=== PATIENT | female | born 1970 | race Hispanic/Latino ===

== ENCOUNTER 2019-09-26 21:43 | Emergency (ER) | payer OTHER ==
[~2019-09-26] VITALS: Ht 162.6 cm; Wt 68.0 kg
--- NOTE | 2019-09-26 22:55 | Emergency Department Note ---
History of Present Illnes History of Present Illness Chief Complaint: Abdominal Complaints History of Present Illness This is a 49 year old female who presents with c/o no bowel movement for 1 week with the exception of passing a couple of small hard pieces of stool today . Historian: Patient Arrival Mode: Car Onset (how long ago): week(s) (1) Location: abdomen Quality: dull discomfort to lower abdomen with occasional cramping Radiation: non-radiation Severity: mild Onset quality: gradual Duration (how long): week(s) (1) Timing of current episode: constant Progression: unchanged Chronicity: new Relieving factors: none Exacerbating factors: none Associated symptoms: denies other symptoms Past Medical/Family History Physician Review I have reviewed the patient's past medical and family history. Any updates have been documented here. Past Medical History Recent Fever: No Clinical Suspicion of Infectio: No New/Unexplained Change in Ment: No Past Medical History: Hypothyroidism, GERD Past Surgical History: Appendectomy Social History Smoking Cessation: Current every day smoker Alcohol Use: Social Any Illegal Drug Use: No TB Exposure/Symptoms: No Physically hurt or threatened: No Other Last Tetanus: UNK Any Pre-Existing Lines (PICC,: No Is patient up to date on immun: No Last Flu: DENIES Last Pneumovax: DENIES Review of Systems Review of Systems Constitutional: no symptoms EENTM: no symptoms Cardiovascular: no symptoms Respiratory: no symptoms Gastrointestinal: as per HPI, abdominal pain, constipation Genitourinary: no symptoms Musculoskeletal: no symptoms Integumentary: no symptoms Neurological: no symptoms Psychological: no symptoms Endocrine: no symptoms Hematological/Lymphatic: no symptoms Review of other systems All other systems reviewed and negative. Physical Exam Related Data Allergies: Coded Allergies: No Known Allergies (Unverified , 09/26/19) Triage Vital Signs Vital Signs Date Time Temp Pulse Resp B/P (MAP) Pulse Ox O2 Delivery O2 Flow Rate FiO2 09/26/19 22:40 99.2 80 20 115/78 99 Vital signs reviewed: Yes Physical Exam CONSTITUTIONAL Constitutional: well-developed, well-nourished HENT HENT: normocephalic, atraumatic, oropharynx clear/moist, nose normal HENT - Ear: left ext ear normal, right ext ear normal EYES Eyes: PERRL, conjunctivae normal NECK Neck: ROM normal PULMONARY Pulmonary: effort normal, breath sounds normal CARDIOVASCULAR Cardiovascular: regular rhythm, heart sounds normal, capillary refill normal, normal rate GASTROINTESTINAL Abdominal: soft, nontender, bowel sounds normal GENITOURINARY Genitourinary: exam deferred SKIN Skin: warm, dry MUSCULOSKELETAL Musculoskeletal: ROM normal NEUROLOGICAL Neurological: alert, oriented x 3, no gross motor or sensory deficits PSYCHOLOGICAL Psychiatric/behavioral: mood/affect normal, judgement normal Results Imaging Imaging results reviewed: Yes Imaging Comments pt with moderate stool volume left colon, interpreted by me Critical Care Time Subsequent provider I assumed direction of critical care for this patient from another provider of my specialty. Assessment & Plan Assessment & Plan Problems: (1) Constipation Assessment & Plan pt with constipation for 1 week, kub ordered to eval for extent of constipation, ileus, Depart Disposition: HOME, SELF-CARE Last Vital Signs Date Time Temp Pulse Resp B/P (MAP) Pulse Ox O2 Delivery O2 Flow Rate FiO2 09/26/19 22:40 99.2 80 20 115/78 99 MATI BALLESTEROS MD September 26, 2019 22:54
[2019-09-27 00:12] VITALS: BP 121/78
--- NOTE | 2019-09-27 01:04 | Diagnostic Imaging Report ---
EXAM: Abdomen Radiograph 1 View(s) INDICATION: Abdominal pain COMPARISON: None FINDINGS: The bowel gas pattern is nonspecific. Moderate formed stool within the left colon and rectum. No free intraperitoneal air. No abnormal soft tissue calcification. Bilateral tubal ligation clips. IMPRESSION: No acute abdominal radiographic abnormality. Signed by: Tyrone Elena MD on 09/27/2019 1:01 AM
[2019-09-27] MEDS ORDERED: COLACE100 MG PO (17:02)
[2019-09-27] MEDS ORDERED: BISACODYL5 MG PO (17:02)
== END 2019-09-27 00:39 | disposition home or self-care (01) ==
LOC: ER 21:43
DX: R10.9 Unspecified abdominal pain (principal); K59.00 Constipation, unspecified; E03.9 Hypothyroidism, unspecified; K21.9 Gastro-esophageal reflux disease without esophagitis; F17.210 Nicotine dependence, cigarettes, uncomplicated
CPT/HCPCS: 74019; 99283

== ENCOUNTER 2019-09-27 11:34 | Emergency (ER) | payer OTHER ==
[~2019-09-27] VITALS: Ht 162.6 cm; Wt 68.0 kg
--- OUTSIDE RECORDS SUMMARY | 2019-09-27 11:37 | XMS REPORT ---
Author Author [facility] t Organization [facility] Address 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 Social History Social Habit Start Date Stop Date Quantity Comments Source Sex Assigned At 1970 00:00:00 1970 00:00:00 Female [facility] Medications This patient has no known medications. Vital Signs Vital Name Observation Time Observation Value Comments Source Weight 2019-09-26 22:40:00 150 [lb_av] [facility] BMI (Body Mass Index) 2019-09-26 22:40:00 25.7 kg/m2 [facility] Procedures This patient has no known procedures. Plan of Care Planned Activity Planned Date Details Comments Source Goal Patient referral [code = [id number] ] [facility] Instructions Constipation - Adult [facility] Results Test Description Test Time Test Comments Results Result Comments Source ABDOMEN 2 VIEW 2019-09-27 01:00:00 [facility] [address] [place], [place] [address] Patient Name: COLLETTE DONG MR #: [id number] : 1970 Age/Sex: 49/F Req #: [id number] [facility] Physician: Ordered by: MATI BALLESTEROS MD Report #: [id number] Location: ER Room/Bed: Procedure: [id number] DX/ABDOMEN 2 VIEW Exam Date: 09/26/19 Exam Time: 2315 REPORT STATUS: Signed EXAM: Abdomen Radiograph 1 View(s) INDICATION: Abdominal pain COMPARISON: None FINDINGS: The bowel gas pattern is nonspecific. Moderate formed stool within the left colon and rectum. No free intraperitoneal air. No abnormal soft tissue calcification. Bilateral tubal ligation clips. IMPRESSION: No acute abdominal radiographic abnormality. Signed by: Fabiola Goff MD on 09/27/2019 1:01 AM Dictated By: FABIOLA GOFF MD 0 Transcribed By: VITO on 09/27/19100 COPY TO: MATI BALLESTEROS MD
[2019-09-27 12:11] LABS: BASOPHILS % 0.3 % (0.0-1.0); EOSINOPHILS # (AUTO) 0.1 (0.0-0.4); HEMATOCRIT 38.6 % (34.2-44.1); LYMPHOCYTES # (AUTO) 1.7 (1.0-3.2); LYMPHOCYTES % 16.6 % (18.0-39.1); MEAN CORPUSCULAR HGB CONC 33.7 g/dL (31-35); MEAN CORPUSCULAR VOLUME 91.9 fL (81-99); MONOCYTES # (AUTO) 0.6 (0.2-0.8); MONOCYTES % 6.1 % (4.4-11.3); NEUTROPHILS # (AUTO) 7.7 (2.1-6.9); NEUTROPHILS % 75.5 % (38.7-80.0); PLATELET COUNT 264 x10e3/uL (140-360); RED CELL DISTRIBUTION WIDTH 12.9 % (11.7-14.4)
[2019-09-27 12:34] LABS: ALANINE AMINOTRANSFERASE 20 IU/L (0-55); ALBUMIN 4.2 g/dL (3.5-5.0); ALBUMIN/GLOBULIN RATIO 1.1 (0.8-2.0); ALKALINE PHOSPHATASE 142 IU/L (40-150); ANION GAP 13.6 mmol/L (8-16); BLOOD UREA NITROGEN 15 mg/dL (7-26); BUN/CREATININE RATIO 20 (6-25); CALCIUM 9.8 mg/dL (8.4-10.2); CARBON DIOXIDE 26 mmol/L (22-29); CHLORIDE 102 mmol/L (98-107); CREATINE KINASE 121 IU/L (29-168); CREATININE, SERUM 0.74 mg/dL (0.57-1.11); EST GLOMERULAR FILTRATION RATE > 60 ML/MIN (60-); GLUCOSE 91 mg/dL (74-118); POTASSIUM 3.6 mmol/L (3.5-5.1); SODIUM 138 mmol/L (136-145)
[2019-09-27] MEDS ORDERED: DIATRIZOATE MEGL/DIATRIZOA SOD 30 ML BTL PO ONE (12:37)
--- NOTE | 2019-09-27 12:44 | NUR ---
PATIENT AGAIN REMINDED OF NEED FOR URINE SAMPLE; PATIENT STATES THAT SHE IS UNABLE TO GO. DR COON NOTIFIED AT THIS TIME
[2019-09-27] MEDS ORDERED: LACTULOSE SYRUP 20 GM/30 ML UDC ONE (13:43)
[2019-09-27] MEDS ORDERED: LACTULOSE SYRUP 20 GM/30 ML UDC PO ONE (13:45)
[2019-09-27] MEDS ORDERED: SODIUM CHLORIDE 0.9% 50ML 50 ML ONE (13:53)
[2019-09-27] MEDS ORDERED: IOPAMIDOL 370 MG/ML 200 ML INFUS..BTL INJ ONE (13:53)
--- NOTE | 2019-09-27 15:33 | Diagnostic Imaging Report ---
EXAM: CT Abdomen and Pelvis WITH intravenous contrast INDICATION: Abdominal pain COMPARISON: KUB 09/26/2019 TECHNIQUE: Abdomen and pelvis were scanned utilizing a multidetector helical scanner from the lung base to the pubic symphysis after administration of IV contrast. Coronal and sagittal reformations were obtained. Routine protocol was performed. Scan was performed during portal venous phase. IV CONTRAST: 100mL of Isovue 370 ORAL CONTRAST: Water RADIATION DOSE: Total DLP: 306 mGy*cm Dose modulation, iterative reconstruction, and/or weight based adjustment of the mA/kV was utilized to reduce the radiation dose to as low as reasonably achievable. FINDINGS: LOWER THORAX: Normal. HEPATOBILIARY: No focal hepatic lesions. No biliary ductal dilatation. The gallbladder appears unremarkable. SPLEEN: No splenomegaly. PANCREAS: No focal masses or ductal dilatation. ADRENALS: No adrenal nodules. KIDNEYS/URETERS: No hydronephrosis, stones, or solid mass lesions. PELVIC ORGANS/BLADDER: Unremarkable. PERITONEUM / RETROPERITONEUM: No free air or fluid. LYMPH NODES: No lymphadenopathy. VESSELS: Unremarkable. GI TRACT: No distention or wall thickening. Increased stool burden, most notably in the rectum. BONES AND SOFT TISSUES: Unremarkable. IMPRESSION: Increased stool burden, most notably in the rectum, can be seen in the setting of constipation. Otherwise, no acute findings in the abdomen or pelvis. Signed by: Kaitlyn Whaley MD on 09/27/2019 3:30 PM
[2019-09-27] MEDS ORDERED: LIDOCAINE HCL 2% JELLY 5 ML TUBE ONE (15:40)
--- NOTE | 2019-09-27 16:28 | NUR ---
Soap suds enema produced large bowel movement, pt reports some cramping.
--- NOTE | 2019-09-27 16:55 | Emergency Department Note ---
History of Present Illnes History of Present Illness Chief Complaint: Abdominal Complaints History of Present Illness This is a 49 year old female . Chief Complaint Comment PATIENT IN FROM HOME WITH COMPLAINTS OF CONSTIPATION SINCE YESTERDAY; STATES WAS SEEN HERE FOR THE SAME LAST NIGHT AND WAS SENT HOME WITH AN ENEMA. PATIENT STATES THAT SHE HAD A SMALL BM BUT DOES NOT FEEL LIKE IT IS ENOUGH. PATIENT DENIES PAIN AT THIS TIME, BUT STATES THAT WHEN SHE TRIES TO GO TO THE RESTROOM IT IS A 10/10. 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 Any updates have been documented here. Past Medical History Recent Fever: No Clinical Suspicion of Infectio: No New/Unexplained Change in Ment: No Past Medical History: Hypothyroidism, GERD Past Surgical History: Appendectomy Social History Smoking Cessation: Never Smoker Counseling Performed: No Alcohol Use: None Any Illegal Drug Use: No TB Exposure/Symptoms: No Physically hurt or threatened: No Family History Family history of heart diseas: No Other Last Tetanus: UNK Any Pre-Existing Lines (PICC,: No Is patient up to date on immun: Yes Last Flu: OOD Last Pneumovax: NA Review of Systems Review of Systems Constitutional: no symptoms EENTM: no symptoms Cardiovascular: no symptoms Respiratory: no symptoms Gastrointestinal: abdominal pain, constipation Genitourinary: no symptoms Musculoskeletal: no symptoms Integumentary: no symptoms Neurological: no symptoms Psychological: no symptoms Endocrine: no symptoms Hematological/Lymphatic: no symptoms Review of other systems All other systems reviewed and negative. Physical Exam Related Data Allergies: Coded Allergies: No Known Allergies (Unverified , 09/26/19) Triage Vital Signs Vital Signs Date Time Temp Pulse Resp B/P (MAP) Pulse Ox O2 Delivery O2 Flow Rate FiO2 09/27/19 11:37 97.2 81 18 108/72 100 Physical Exam CONSTITUTIONAL Constitutional: well-developed, well-nourished HENT HENT: normocephalic, atraumatic, oropharynx clear/moist, nose normal HENT - Ear: left ext ear normal, right ext ear normal EYES Eyes: PERRL, conjunctivae normal NECK Neck: ROM normal PULMONARY Pulmonary: effort normal, breath sounds normal CARDIOVASCULAR Cardiovascular: regular rhythm, heart sounds normal, capillary refill normal, normal rate GASTROINTESTINAL Abdominal: soft, bowel sounds normal, distension, tender GENITOURINARY Genitourinary: exam deferred SKIN Skin: warm, dry MUSCULOSKELETAL Musculoskeletal: ROM normal NEUROLOGICAL Neurological: alert, oriented x 3, no gross motor or sensory deficits PSYCHOLOGICAL Psychiatric/behavioral: mood/affect normal, judgement normal Results Laboratory Result Diagram: 09/27/19 1142 09/27/19 1142 Laboratory Laboratory Tests Test 09/27/19 11:42 White Blood Count 10.21 x10e3/uL (4.8-10.8) Red Blood Count 4.20 x10e6/uL (3.6-5.1) Hemoglobin 13.0 g/dL (12.0-16.0) Hematocrit 38.6 % (34.2-44.1) Mean Corpuscular Volume 91.9 fL (81-99) Mean Corpuscular Hemoglobin 31.0 pg (28-32) Mean Corpuscular Hemoglobin Concent 33.7 g/dL (31-35) Red Cell Distribution Width 12.9 % (11.7-14.4) Platelet Count 264 x10e3/uL (140-360) Neutrophils (%) (Auto) 75.5 % (38.7-80.0) Lymphocytes (%) (Auto) 16.6 % (18.0-39.1) Monocytes (%) (Auto) 6.1 % (4.4-11.3) Eosinophils (%) (Auto) 1.0 % (0.0-6.0) Basophils (%) (Auto) 0.3 % (0.0-1.0) Neutrophils # (Auto) 7.7 (2.1-6.9) Lymphocytes # (Auto) 1.7 (1.0-3.2) Monocytes # (Auto) 0.6 (0.2-0.8) Eosinophils # (Auto) 0.1 (0.0-0.4) Basophils # (Auto) 0.0 (0.0-0.1) Absolute Immature Granulocyte (auto 0.05 x10e3/uL (0-0.1) Sodium Level 138 mmol/L (136-145) Potassium Level 3.6 mmol/L (3.5-5.1) Chloride Level 102 mmol/L (98-107) Carbon Dioxide Level 26 mmol/L (22-29) Anion Gap 13.6 mmol/L (8-16) Blood Urea Nitrogen 15 mg/dL (7-26) Creatinine 0.74 mg/dL (0.57-1.11) Estimat Glomerular Filtration Rate > 60 ML/MIN (60-) BUN/Creatinine Ratio 20 (6-25) Glucose Level 91 mg/dL (74-118) Calcium Level 9.8 mg/dL (8.4-10.2) Total Bilirubin 0.5 mg/dL (0.2-1.2) Aspartate Amino Transf (AST/SGOT) 23 IU/L (5-34) Alanine Aminotransferase (ALT/SGPT) 20 IU/L (0-55) Alkaline Phosphatase 142 IU/L (40-150) Creatine Kinase 121 IU/L (29-168) Creatine Kinase MB 2.80 ng/mL (0-5.0) Troponin I 0.012 ng/mL (0-0.300) Total Protein 8.1 g/dL (6.5-8.1) Albumin 4.2 g/dL (3.5-5.0) Globulin 3.9 g/dL (2.3-3.5) Albumin/Globulin Ratio 1.1 (0.8-2.0) Lipase 31 U/L (8-78) Human Chorionic Gonadotropin, Qual Negative (NEGATIVE) Lab results reviewed: Yes Imaging Imaging results reviewed: Yes Impressions IMPRESSION: Increased stool burden, most notably in the rectum, can be seen in the setting of constipation. Otherwise, no acute findings in the abdomen or pelvis. Critical Care Time Subsequent provider I assumed direction of critical care for this patient from another provider of my specialty. Assessment & Plan Assessment & Plan Problems: (1) Constipation Assessment & Plan -cbc, cmp and CT AP done to ensure no obstruction -soap venkata enema done on pt which allowed break of fecal matter and bowel movement in the ED- pt noted instant relief, tolerated oral intake and stable for D/C home Last Vital Signs Date Time Temp Pulse Resp B/P (MAP) Pulse Ox O2 Delivery O2 Flow Rate FiO2 09/27/19 13:40 81 18 117/70 100 09/27/19 11:37 97.2 Medications in the ED Diatrizoate Meglum/ Diatrizoate Sod 30 ml STK-MED ONCE PO ; Start 09/27/19 at 12:37; Stop 09/27/19 at 12:32; Status DC Lactulose 40 gm ONCE ONCE PO Last administered on 09/27/19at 13:38; Admin Dose 40 GM; Start 09/27/19 at 13:45; Stop 09/27/19 at 13:46; Status DC Lactulose 40 gm STK-MED ONCE .ROUTE ; Start 09/27/19 at 13:43; Stop 09/27/19 at 13:38; Status DC Sodium Chloride 50 ml @ ud STK-MED ONCE .ROUTE ; Start 09/27/19 at 13:53; Stop 09/27/19 at 13:48; Status DC Iopamidol 74,000 mg STK-MED ONCE INJ ; Start 09/27/19 at 13:53; Stop 09/27/19 at 13:48; Status DC Lidocaine HCl 5 ml STK-MED ONCE .ROUTE ; Start 09/27/19 at 15:40; Stop 09/27/19 at 15:35; Status DC BARBARA COON DO September 27, 2019 16:39
[2019-09-27] MEDS ORDERED: BISACODYL5 MG PO (17:02)
[2019-09-27] MEDS ORDERED: COLACE100 MG PO (17:02)
[2019-09-27 17:25] VITALS: BP 102/82
== END 2019-09-27 17:29 | disposition home or self-care (01) ==
LOC: ER 11:34
DX: K59.00 Constipation, unspecified (principal); K21.9 Gastro-esophageal reflux disease without esophagitis; E03.9 Hypothyroidism, unspecified
CPT/HCPCS: 36415; 74177; 80053; 82550; 82553; 83690; 84484; 84702; 85025; 99284; J2001; Q9967